=== PATIENT | female | born 1970 | race African-American/Black ===

== ENCOUNTER 2021-09-19 22:07 | Inpatient (IN) | payer SELFPAY ==
[2021-09-19] MEDS ORDERED: Albuterol Sulfate 2.5 mg/3 ml Neb ONE (22:27)
[2021-09-19] MEDS ORDERED: Albuterol Sulfate 2.5 mg/0.5 ml Neb ONE (22:27)
[2021-09-19 22:30] LABS: #Lymphocytes 1.7 thou/uL (1.20-3.40); #Monocytes 0.3 thou/uL (0.11-0.59); #Neutrophils 9.4 thou/uL (1.40-6.50); %Eosinophils 0.1 % (0.0-10.0); %Lymphocytes 15.3 % (21.0-51.0); %Monocytes 2.2 % (0.0-10.0); %Neutrophils 82.4 % (42.0-75.0); Hemoglobin 12.6 g/dL (12.0-16.0); Mean Corpuscular HGB CONC 32.6 g/dL (32.0-36.0); Mean Corpuscular Hemoglobin 31.6 pg (27.0-31.0); Mean Corpuscular Volume 96.8 fL (78.0-98.0); Mean Platelet Volume 7.6 fL (7.4-10.4); Platelet Count 213 thou/uL (130-400); RBC Distribution Width 12.5 % (11.5-14.5); Red Blood Cell (RBC) Count 3.98 mill/uL (4.20-5.40); White Blood Cell (WBC) Count 11.4 thou/uL (4.8-10.8)
[2021-09-19 22:52] LABS: ALT (SGPT) 17 U/L (8-55); AST (SGOT) 29 U/L (5-34); Albumin 3.9 g/dL (3.5-5.0); Alkaline Phosphatase 53 U/L (40-110); Anion Gap 14 mmol/L (10-20); BUN (Urea Nitrogen) 9 mg/dL (7.0-18.7); Bilirubin, Total 0.3 mg/dL (0.2-1.2); Calc. Creatinine Clearance 0 mL/min (70-130); Calcium 7.9 mg/dL (7.8-10.44); Carbon Dioxide 20 mmol/L (22-29); Chloride 98 mmol/L (98-107); Globulin 3.3 g/dL (2.4-3.5); Glucose 265 mg/dL (70-105); Magnesium 2.5 mg/dL (1.6-2.6); Potassium 3.5 mmol/L (3.5-5.1); Protein, Total 7.2 g/dL (6.0-8.3); Sodium 128 mmol/L (136-145)
[2021-09-19 23:06] LABS: Actual Bicarbonate (HCO3a) 15.9 mEq/L (22-28); Analyzer IN Cardio ER; Base Excess (BEa) -12.5 mEq/L (-2.0 to +3.0); CO2 Tension 46.4 mmHg (35.0-45.0); Calcium, Ionized (arterial) 1.09 mmol/L (1.12-1.30); Carboxyhemoglobin (COHb) 0.2 gm% (0.0-3.0); Hemoglobin (Hb) 12.9 g/dL (12.0-16.0); O2 Tension (PaO2), arterial 103.3 mmHg (80.0-100.0); Potassium - ABG Lab 3.19 mmol/L (3.70-5.30)
[2021-09-19 23:13] LABS: CKMB 2.9 ng/mL (0-6.6)
[2021-09-19 23:20] LABS: pH, Arterial 7.15 (7.35-7.45)
[2021-09-19 23:21] LABS: Puncture Site RRA
[2021-09-19] MEDS ORDERED: Propofol 1,000 MG/100 ML VIAL IV ONE (23:43)
[2021-09-19] MEDS ORDERED: Ventilator Sedation Protocol 1 EACH FS SCH (23:45)
[2021-09-19 23:51] LABS: SARS-CoV-2 NAA Rapid Test Not Detected (NotDetected)
[2021-09-19] MEDS ORDERED: Ondansetron ODT 4 MG TAB PO PRN (23:51)
[2021-09-19] MEDS ORDERED: Acetaminophen 650 MG Suppository PR PRN (23:51)
[2021-09-19] MEDS ORDERED: Ondansetron PF 4 MG/2 ML Vial IVP PRN (23:51)
[2021-09-20] MEDS ORDERED: Metoprolol Tartrate 5 MG/5 ML VIAL IVP PRN (01:14)
[2021-09-20] MEDS ORDERED: Electrolyte Replacement Protocol 1 EACH FS SCH (01:15)
[2021-09-20] MEDS ORDERED: Sodium Chloride 0.9% 1,000 ML IV SCH (01:15)
[2021-09-20 01:37] LABS: Hemoglobin 12.3 g/dL (12.0-16.0); Mean Corpuscular HGB CONC 32.8 g/dL (32.0-36.0); Mean Corpuscular Hemoglobin 31.7 pg (27.0-31.0); Mean Corpuscular Volume 96.6 fL (78.0-98.0); Mean Platelet Volume 7.6 fL (7.4-10.4); Platelet Count 179 thou/uL (130-400); RBC Distribution Width 12.5 % (11.5-14.5); Red Blood Cell (RBC) Count 3.87 mill/uL (4.20-5.40); White Blood Cell (WBC) Count 12.1 thou/uL (4.8-10.8)
[2021-09-20] MEDS ORDERED: methylPREDNISolone Sod Succ 40 MG VIAL IVP SCH (01:45)
[2021-09-20] MEDS ORDERED: Fentanyl BOLUS 250 ML IVPB PRN (01:45)
[2021-09-20] MEDS ORDERED: Morphine 4 MG/ML VIAL SLOW IVP PRN (01:45)
[2021-09-20] MEDS ORDERED: Fentanyl CADD 100 ML IV SCH (01:45)
[2021-09-20] MEDS ORDERED: Propofol BOLUS 1,000 MG/100 ML VIAL IV PRN (01:45)
[2021-09-20] MEDS ORDERED: DISCONTINUE PREVIOUS NARCOTIC PAIN MEDICATIONS AND BENZODIAZEPINES FS SCH (01:45)
[2021-09-20 01:50] LABS: Hemoglobin A1c 5.6 % (4.0-6.0)
[2021-09-20 01:53] LABS: Band 17 % (5-11); Lymphocytes 3 % (21-51); MDiff Complete? YES; Monocytes 2 % (0-10); Neutrophil 78 % (42-75)
[2021-09-20 02:20] LABS: Troponin I 0.095 ng/mL (< 0.028)
[2021-09-20 02:39] LABS: Anion Gap 18 mmol/L (10-20); BUN (Urea Nitrogen) 11 mg/dL (7.0-18.7); Calc. Creatinine Clearance 79 mL/min (70-130); Calcium 7.7 mg/dL (7.8-10.44); Carbon Dioxide 15 mmol/L (22-29); Chloride 102 mmol/L (98-107); Glucose 256 mg/dL (70-105); Potassium 3.2 mmol/L (3.5-5.1); Sodium 132 mmol/L (136-145)
[2021-09-20] MEDS: Azithromycin 500 MG in Sodium Chloride 0.9% 250 ML 250 ML IVPB SCH (02:52)
[2021-09-20] MEDS: cefTRIAXone\\ROCEPHIN 1 GM in Sodium Chloride 0.9% 100 ML IVPB SCH (02:53)
[2021-09-20 03:10] LABS: Actual Bicarbonate (HCO3a) 18.2 mEq/L (22-28); Base Excess (BEa) -9.2 mEq/L (-2.0 to +3.0); CO2 Tension 45.2 mmHg (35.0-45.0); Calcium, Ionized (arterial) 1.05 mmol/L (1.12-1.30); Carboxyhemoglobin (COHb) 0.3 gm% (0.0-3.0); Hemoglobin (Hb) 12.5 g/dL (12.0-16.0); O2 Tension (PaO2), arterial 62.2 mmHg (80.0-100.0); Potassium - ABG Lab 3.22 mmol/L (3.70-5.30)
[2021-09-20 03:19] LABS: pH, Arterial 7.22 (7.35-7.45)
[2021-09-20 03:20] LABS: Base Excess (BEa) -8.7 mEq/L (-2.0 to +3.0); CO2 Tension 41.3 mmHg (35.0-45.0); Calcium, Ionized (arterial) 1.04 mmol/L (1.12-1.30); Carboxyhemoglobin (COHb) 0.3 gm% (0.0-3.0); Hemoglobin (Hb) 12.2 g/dL (12.0-16.0); O2 Tension (PaO2), arterial 108.9 mmHg (80.0-100.0); Potassium - ABG Lab 3.17 mmol/L (3.70-5.30); Puncture Site LRA; pH, Arterial 7.26 (7.35-7.45)
[2021-09-20 03:21] LABS: ALV-art Gradient 195.975 mmHg (0-20)
[2021-09-20] MEDS ORDERED: Potassium Chloride 40 MEQ in Sodium Chloride 0.9% 250 ML 250 ML IVPB SCH (05:00)
[2021-09-20] MEDS: Propofol 1,000 MG/100 ML VIAL IV PRN ×3 (05:40→16:54)
[2021-09-20] MEDS: Lorazepam 2 MG/ML VIAL SLOW IVP PRN ×2 (05:41→19:56)
[2021-09-20 06:33] LABS: Actual Bicarbonate (HCO3a) 17.8 mEq/L (22-28); Base Excess (BEa) -7.3 mEq/L (-2.0 to +3.0); CO2 Tension 34.6 mmHg (35.0-45.0); Calcium, Ionized (arterial) 1.06 mmol/L (1.12-1.30); Carboxyhemoglobin (COHb) 0.3 gm% (0.0-3.0); Hemoglobin (Hb) 12.5 g/dL (12.0-16.0); O2 Tension (PaO2), arterial 141.1 mmHg (80.0-100.0); Potassium - ABG Lab 3.68 mmol/L (3.70-5.30); pH, Arterial 7.33 (7.35-7.45)
[2021-09-20 06:34] LABS: Puncture Site RRA
[2021-09-20] MEDS ORDERED: Sodium Bicarb 50 MEQ/50 ML VIAL IVP SCH ×2 (07:00→07:02)
[2021-09-20] MEDS: fentaNYL Citrate-0.9 % NaCl/PF 100 ML IV SCH ×2 (07:13→20:02)
[2021-09-20] MEDS ORDERED: NPH, Human Insulin Isophane 300 UNIT/3 ML VIAL SC SCH ×2 (08:45→21:00)
[2021-09-20] MEDS: Sodium Chloride 0.9% 1,000 ML IV SCH ×2 (08:57→16:54)
[2021-09-20] MEDS: Sodium Bicarbonate Tab 325 MG TAB PER TUBE SCH ×2 (10:16→21:18)
[2021-09-20] MEDS: Enoxaparin Sodium 40 MG/0.4 ML SYRINGE SC SCH (10:16)
[2021-09-20 10:22] LABS: Bilirubin Negative (Negative); Blood, Urine 1+ (Negative); Clarity Clear (Clear); Glucose, Urine (Dipstick) Normal (Negative); Ketone, Urine Negative (Negative); Leukocyte Negative Leu/uL (Negative); Nitrite Negative (Negative); Protein, Urine (Dipstick) 20 mg/dL (Neg-Trace); RBC/HPF 0-3 HPF (0-3); Specific Gravity, Urine 1.018 (1.002-1.036); Squamous Epithelial 0-3 HPF (0-3); Urobilinogen Normal mg/dL (Less than 2); WBC/HPF 0-3 HPF (0-3); pH, Urine 5.5 (5.0-9.0)
[2021-09-20 10:23] LABS: Bacteria/HPF 1+ HPF (None Seen)
[2021-09-20] MEDS ORDERED: HumaLOG 300 UNITS/3 ML VIAL SC PRN (11:21)
[2021-09-20] MEDS ORDERED: Dextrose 5% in Water 1,000 ML IV PRN (11:21)
[2021-09-20] MEDS ORDERED: Dextrose 50% Abboject 50 ML SYRINGE SLOW IVP PRN (11:21)
[2021-09-20] MEDS: Famotidine/PF 20 mg/2ml Vial SLOW IVP SCH (21:18)
[2021-09-20] MEDS: methylPREDNISolone Sod Succ 40 MG VIAL IVP SCH (21:18)
[2021-09-20] MEDS: NPH, Human Insulin Isophane 300 UNIT/3 ML VIAL SC SCH (21:28)
[2021-09-21] MEDS: Sodium Chloride 0.9% 1,000 ML IV SCH ×3 (01:19→16:12)
[2021-09-21] MEDS: Azithromycin 500 MG in Sodium Chloride 0.9% 250 ML 250 ML IVPB SCH (01:20)
[2021-09-21] MEDS: cefTRIAXone\\ROCEPHIN 1 GM in Sodium Chloride 0.9% 100 ML IVPB SCH (02:30)
[2021-09-21] MEDS: Propofol 1,000 MG/100 ML VIAL IV PRN ×3 (02:30→10:45)
[2021-09-21] MEDS: Lorazepam 2 MG/ML VIAL SLOW IVP PRN ×2 (04:09→11:37)
[2021-09-21 08:04] LABS: Actual Bicarbonate (HCO3a) 21.8 mEq/L (22-28); Base Excess (BEa) -1.7 mEq/L (-2.0 to +3.0); CO2 Tension 32.6 mmHg (35.0-45.0); Calcium, Ionized (arterial) 1.13 mmol/L (1.12-1.30); Carboxyhemoglobin (COHb) 0.3 gm% (0.0-3.0); Hemoglobin (Hb) 11.3 g/dL (12.0-16.0); O2 Tension (PaO2), arterial 127.4 mmHg (80.0-100.0); Potassium - ABG Lab 4.16 mmol/L (3.70-5.30); pH, Arterial 7.44 (7.35-7.45)
[2021-09-21 08:06] LABS: Puncture Site RRA
[2021-09-21] MEDS: Famotidine/PF 20 mg/2ml Vial SLOW IVP SCH ×2 (08:23→21:14)
[2021-09-21] MEDS: Sodium Bicarbonate Tab 325 MG TAB PER TUBE SCH ×2 (08:23→21:14)
[2021-09-21] MEDS: Enoxaparin Sodium 40 MG/0.4 ML SYRINGE SC SCH (08:23)
[2021-09-21 08:44] LABS: #Monocytes 0.3 thou/uL (0.11-0.59); #Neutrophils 8.6 thou/uL (1.40-6.50); %Basophils 0.1 % (0.0-1.0); %Eosinophils 0.1 % (0.0-10.0); %Lymphocytes 9.6 % (21.0-51.0); %Monocytes 3.4 % (0.0-10.0); %Neutrophils 86.8 % (42.0-75.0); Hemoglobin 11.1 g/dL (12.0-16.0); Mean Corpuscular HGB CONC 33.1 g/dL (32.0-36.0); Mean Corpuscular Hemoglobin 32.1 pg (27.0-31.0); Mean Platelet Volume 8.6 fL (7.4-10.4); Platelet Count 131 thou/uL (130-400); RBC Distribution Width 12.7 % (11.5-14.5); Red Blood Cell (RBC) Count 3.46 mill/uL (4.20-5.40); White Blood Cell (WBC) Count 9.9 thou/uL (4.8-10.8)
[2021-09-21] MEDS ORDERED: FLU VACC QS2021-22(6MOS UP)/PF 60 MCG/0.5 ML SYRINGE IM ONE (09:00)
[2021-09-21 09:04] LABS: ALT (SGPT) 22 U/L (8-55); AST (SGOT) 34 U/L (5-34); Albumin 3.4 g/dL (3.5-5.0); Alkaline Phosphatase 38 U/L (40-110); Anion Gap 13 mmol/L (10-20); BUN (Urea Nitrogen) 11 mg/dL (7.0-18.7); Bilirubin, Total Less than 0.2 mg/dL (0.2-1.2); Calc. Creatinine Clearance 124 mL/min (70-130); Calcium 8.3 mg/dL (7.8-10.44); Carbon Dioxide 23 mmol/L (22-29); Chloride 109 mmol/L (98-107); Globulin 3.4 g/dL (2.4-3.5); Glucose 114 mg/dL (70-105); Potassium 4.4 mmol/L (3.5-5.1); Protein, Total 6.8 g/dL (6.0-8.3); Sodium 141 mmol/L (136-145)
[2021-09-21 09:08] LABS: Troponin I 0.103 ng/mL (< 0.028)
[2021-09-21] MEDS: fentaNYL Citrate-0.9 % NaCl/PF 100 ML IV SCH (10:45)
[2021-09-21] MEDS: Dexmedetomidine In 0.9 % NaCl 400 MCG in Premix Bag 1 BAG IVPB SCH ×2 (13:40→21:17)
[2021-09-21] MEDS: methylPREDNISolone Sod Succ 40 MG VIAL IVP SCH (21:14)
[2021-09-21] MEDS: NPH, Human Insulin Isophane 300 UNIT/3 ML VIAL SC SCH (21:15)
[2021-09-22] MEDS: Azithromycin 500 MG in Sodium Chloride 0.9% 250 ML 250 ML IVPB SCH (01:17)
[2021-09-22] MEDS: Sodium Chloride 0.9% 1,000 ML IV SCH (01:17)
[2021-09-22] MEDS: Propofol 1,000 MG/100 ML VIAL IV PRN (01:18)
[2021-09-22] MEDS: cefTRIAXone\\ROCEPHIN 1 GM in Sodium Chloride 0.9% 100 ML IVPB SCH (03:32)
[2021-09-22 04:20] LABS: #Lymphocytes 0.6 thou/uL (1.20-3.40); #Monocytes 0.2 thou/uL (0.11-0.59); #Neutrophils 6.8 thou/uL (1.40-6.50); %Basophils 0.1 % (0.0-1.0); %Lymphocytes 8.1 % (21.0-51.0); %Neutrophils 88.8 % (42.0-75.0); Hemoglobin 11.2 g/dL (12.0-16.0); Mean Corpuscular HGB CONC 34.1 g/dL (32.0-36.0); Mean Corpuscular Hemoglobin 33.7 pg (27.0-31.0); Mean Corpuscular Volume 98.7 fL (78.0-98.0); Mean Platelet Volume 8.5 fL (7.4-10.4); Platelet Count 126 thou/uL (130-400); RBC Distribution Width 12.8 % (11.5-14.5); Red Blood Cell (RBC) Count 3.34 mill/uL (4.20-5.40); White Blood Cell (WBC) Count 7.6 thou/uL (4.8-10.8)
[2021-09-22 04:38] LABS: Anion Gap 13 mmol/L (10-20); BUN (Urea Nitrogen) 15 mg/dL (7.0-18.7); Calc. Creatinine Clearance 132 mL/min (70-130); Carbon Dioxide 20 mmol/L (22-29); Chloride 113 mmol/L (98-107); Glucose 206 mg/dL (70-105); Potassium 4.5 mmol/L (3.5-5.1); Sodium 141 mmol/L (136-145)
[2021-09-22] MEDS: fentaNYL Citrate-0.9 % NaCl/PF 100 ML IV SCH (04:57)
[2021-09-22] MEDS: Dexmedetomidine In 0.9 % NaCl 400 MCG in Premix Bag 1 BAG IVPB SCH ×3 (05:43→21:49)
[2021-09-22] MEDS: hydrALAZINE 20 MG/ML VIAL SLOW IVP PRN ×2 (06:10→15:05)
[2021-09-22] MEDS: HumaLOG 300 UNITS/3 ML VIAL SC PRN (06:36)
[2021-09-22 08:02] LABS: Actual Bicarbonate (HCO3a) 21.5 mEq/L (22-28); Base Excess (BEa) -4.4 mEq/L (-2.0 to +3.0); CO2 Tension 42.4 mmHg (35.0-45.0); Calcium, Ionized (arterial) 1.19 mmol/L (1.12-1.30); Carboxyhemoglobin (COHb) 0.3 gm% (0.0-3.0); Hemoglobin (Hb) 11.8 g/dL (12.0-16.0); O2 Tension (PaO2), arterial 126.5 mmHg (80.0-100.0); Potassium - ABG Lab 4.24 mmol/L (3.70-5.30); pH, Arterial 7.32 (7.35-7.45)
[2021-09-22 08:03] LABS: Puncture Site RRA
[2021-09-22] MEDS: Sodium Bicarbonate Tab 325 MG TAB PER TUBE SCH ×2 (08:38→20:12)
[2021-09-22] MEDS: Enoxaparin Sodium 40 MG/0.4 ML SYRINGE SC SCH (08:38)
[2021-09-22] MEDS: Famotidine 20 MG TAB PER TUBE SCH ×2 (08:52→20:12)
[2021-09-22] MEDS: Lorazepam 2 MG/ML VIAL SLOW IVP PRN ×5 (12:10→22:59)
[2021-09-22] MEDS ORDERED: niCARdipine 40MG In NaCl 40 MG/200 ML BAG IVPB SCH (16:00)
[2021-09-22] MEDS ORDERED: niCARdipine 25 MG in Sodium Chloride 0.9% 250 ML 250 ML IVPB SCH (16:15)
[2021-09-22] MEDS: methylPREDNISolone Sod Succ 40 MG VIAL IVP SCH (20:12)
[2021-09-22] MEDS: NPH, Human Insulin Isophane 300 UNIT/3 ML VIAL SC SCH (20:25)
[2021-09-22] MEDS: Acetaminophen 325 MG TAB PO PRN (23:44)
[2021-09-23] MEDS: Lorazepam 2 MG/ML VIAL SLOW IVP PRN ×5 (00:40→16:02)
[2021-09-23] MEDS: HumaLOG 300 UNITS/3 ML VIAL SC PRN ×2 (01:02→03:29)
[2021-09-23] MEDS ORDERED: Propofol 1,000 MG/100 ML VIAL IV ONE (01:10)
[2021-09-23] MEDS ORDERED: Propofol BOLUS 1,000 MG/100 ML VIAL IV PRN (01:30)
[2021-09-23] MEDS: Azithromycin 500 MG in Sodium Chloride 0.9% 250 ML 250 ML IVPB SCH (02:23)
[2021-09-23] MEDS: cefTRIAXone\\ROCEPHIN 1 GM in Sodium Chloride 0.9% 100 ML IVPB SCH (02:51)
[2021-09-23] MEDS ORDERED: Furosemide 40 MG/4 ML VIAL SLOW IVP SCH (04:00)
[2021-09-23 04:03] LABS: Band 16 % (5-11); Hemoglobin 10.8 g/dL (12.0-16.0); Lymphocytes 9 % (21-51); MDiff Complete? YES; Mean Corpuscular HGB CONC 31.1 g/dL (32.0-36.0); Mean Corpuscular Hemoglobin 30.4 pg (27.0-31.0); Mean Corpuscular Volume 97.7 fL (78.0-98.0); Mean Platelet Volume 8.4 fL (7.4-10.4); Monocytes 4 % (0-10); Neutrophil 71 % (42-75); Platelet Count 147 thou/uL (130-400); Platelet Morphology Comment Appears Adequate; RBC Distribution Width 12.9 % (11.5-14.5); RBC Morphology Normal; Red Blood Cell (RBC) Count 3.55 mill/uL (4.20-5.40)
[2021-09-23 04:07] LABS: Anion Gap 12 mmol/L (10-20); BUN (Urea Nitrogen) 14 mg/dL (7.0-18.7); Calc. Creatinine Clearance 150 mL/min (70-130); Calcium 8.1 mg/dL (7.8-10.44); Carbon Dioxide 20 mmol/L (22-29); Chloride 110 mmol/L (98-107); Glucose 168 mg/dL (70-105); Potassium 3.9 mmol/L (3.5-5.1); Sodium 138 mmol/L (136-145)
[2021-09-23] MEDS: fentaNYL Citrate-0.9 % NaCl/PF 100 ML IV SCH ×2 (05:45→18:08)
[2021-09-23] MEDS: Propofol 1,000 MG/100 ML VIAL IV PRN ×3 (05:46→23:39)
[2021-09-23 07:09] LABS: Actual Bicarbonate (HCO3a) 24.1 mEq/L (22-28); Base Excess (BEa) 0.3 mEq/L (-2.0 to +3.0); CO2 Tension 35.9 mmHg (35.0-45.0); Calcium, Ionized (arterial) 1.13 mmol/L (1.12-1.30); Carboxyhemoglobin (COHb) 0.1 gm% (0.0-3.0); Hemoglobin (Hb) 12.4 g/dL (12.0-16.0); O2 Tension (PaO2), arterial 80.8 mmHg (80.0-100.0); Potassium - ABG Lab 3.93 mmol/L (3.70-5.30); pH, Arterial 7.44 (7.35-7.45)
[2021-09-23 07:44] LABS: ALV-art Gradient 159.525 mmHg (0-20); Puncture Site RRA
[2021-09-23] MEDS ORDERED: Electrolyte Replacement Protocol 1 EACH FS SCH (09:30)
[2021-09-23] MEDS: Sodium Bicarbonate Tab 325 MG TAB PER TUBE SCH ×2 (09:41→21:55)
[2021-09-23] MEDS: Famotidine 20 MG TAB PER TUBE SCH ×2 (09:42→21:55)
[2021-09-23] MEDS: Furosemide 40 MG TAB PO SCH ×2 (09:42→13:14)
[2021-09-23] MEDS: Enoxaparin Sodium 40 MG/0.4 ML SYRINGE SC SCH (09:42)
[2021-09-23] MEDS: Polyethylene Glycol 3350 17 GM Packet PER TUBE SCH (09:52)
[2021-09-23] MEDS: Senokot S 8.6-50 MG TAB PO SCH ×2 (09:52→21:55)
[2021-09-23] MEDS: Carvedilol 3.125 MG TAB PO SCH (16:02)
[2021-09-23] MEDS: methylPREDNISolone Sod Succ 40 MG VIAL IVP SCH (21:55)
[2021-09-23] MEDS: NPH, Human Insulin Isophane 300 UNIT/3 ML VIAL SC SCH (22:04)
[2021-09-24] MEDS: Lorazepam 2 MG/ML VIAL SLOW IVP PRN (02:08)
[2021-09-24] MEDS: cefTRIAXone\\ROCEPHIN 1 GM in Sodium Chloride 0.9% 100 ML IVPB SCH (02:14)
[2021-09-24] MEDS: Azithromycin 500 MG in Sodium Chloride 0.9% 250 ML 250 ML IVPB SCH (02:52)
[2021-09-24 04:19] LABS: Anion Gap 13 mmol/L (10-20); BUN (Urea Nitrogen) 15 mg/dL (7.0-18.7); Band 4 % (5-11); Calc. Creatinine Clearance 140 mL/min (70-130); Calcium 8.4 mg/dL (7.8-10.44); Carbon Dioxide 29 mmol/L (22-29); Chloride 101 mmol/L (98-107); Glucose 147 mg/dL (70-105); Hemoglobin 10.7 g/dL (12.0-16.0); Hypochromia SLIGHT = 6-15 cells (100X) (0-5/hpf); Lymphocytes 25 % (21-51); MDiff Complete? YES; Mean Corpuscular HGB CONC 31.9 g/dL (32.0-36.0); Mean Corpuscular Hemoglobin 30.8 pg (27.0-31.0); Mean Corpuscular Volume 96.6 fL (78.0-98.0); Mean Platelet Volume 8.5 fL (7.4-10.4); Neutrophil 71 % (42-75); Platelet Count 158 thou/uL (130-400); Platelet Morphology Comment Appears Adequate; Potassium 3.5 mmol/L (3.5-5.1); RBC Distribution Width 12.8 % (11.5-14.5); Red Blood Cell (RBC) Count 3.46 mill/uL (4.20-5.40); Sodium 139 mmol/L (136-145); White Blood Cell (WBC) Count 6.1 thou/uL (4.8-10.8)
[2021-09-24] MEDS: Propofol 1,000 MG/100 ML VIAL IV PRN ×2 (04:58→20:49)
[2021-09-24] MEDS: fentaNYL Citrate-0.9 % NaCl/PF 100 ML IV SCH ×2 (06:16→23:44)
[2021-09-24] MEDS ORDERED: Potassium Bicarbonate/Cit Ac 20 MEQ TAB PER TUBE SCH (07:00)
[2021-09-24] MEDS: Polyethylene Glycol 3350 17 GM Packet PER TUBE SCH (08:59)
[2021-09-24] MEDS: Furosemide 40 MG TAB PO SCH ×2 (08:59→14:54)
[2021-09-24] MEDS: Famotidine 20 MG TAB PER TUBE SCH ×2 (08:59→20:48)
[2021-09-24] MEDS: Sodium Bicarbonate Tab 325 MG TAB PER TUBE SCH ×2 (08:59→20:48)
[2021-09-24] MEDS: Enoxaparin Sodium 40 MG/0.4 ML SYRINGE SC SCH (08:59)
[2021-09-24] MEDS: Carvedilol 3.125 MG TAB PO SCH ×2 (09:00→17:05)
[2021-09-24] MEDS: Senokot S 8.6-50 MG TAB PO SCH ×2 (09:15→20:46)
[2021-09-24] MEDS: Labetalol HCl 100 MG/20 ML VIAL SLOW IVP PRN ×2 (11:41→21:59)
[2021-09-24] MEDS ORDERED: Dexmedetomidine In 0.9 % NaCl 100 ML IVPB SCH (11:45)
[2021-09-24] MEDS: methylPREDNISolone Sod Succ 40 MG VIAL IVP SCH (20:49)
[2021-09-24] MEDS: NPH, Human Insulin Isophane 300 UNIT/3 ML VIAL SC SCH (22:00)
[2021-09-24] MEDS: HumaLOG 300 UNITS/3 ML VIAL SC PRN (22:06)
[2021-09-24] MEDS: hydrALAZINE 20 MG/ML VIAL SLOW IVP PRN (23:11)
[2021-09-25] MEDS: cefTRIAXone\\ROCEPHIN 2 GM in Sodium Chloride 0.9% 100 ML IVPB SCH (00:47)
[2021-09-25] MEDS: Azithromycin 500 MG in Sodium Chloride 0.9% 250 ML 250 ML IVPB SCH (02:47)
[2021-09-25] MEDS: Propofol 1,000 MG/100 ML VIAL IV PRN ×4 (03:50→20:43)
[2021-09-25] MEDS: HumaLOG 300 UNITS/3 ML VIAL SC PRN (04:07)
[2021-09-25 07:23] LABS: #Monocytes 0.8 thou/uL (0.11-0.59); #Neutrophils 8.5 thou/uL (1.40-6.50); %Eosinophils 0.1 % (0.0-10.0); %Lymphocytes 17.5 % (21.0-51.0); %Monocytes 7.3 % (0.0-10.0); %Neutrophils 75.1 % (42.0-75.0); Mean Corpuscular HGB CONC 31.5 g/dL (32.0-36.0); Mean Corpuscular Hemoglobin 30.5 pg (27.0-31.0); Mean Corpuscular Volume 96.8 fL (78.0-98.0); Mean Platelet Volume 8.2 fL (7.4-10.4); Platelet Count 190 thou/uL (130-400); RBC Distribution Width 12.8 % (11.5-14.5); Red Blood Cell (RBC) Count 3.95 mill/uL (4.20-5.40); White Blood Cell (WBC) Count 11.3 thou/uL (4.8-10.8)
[2021-09-25 07:43] LABS: Anion Gap 15 mmol/L (10-20); BUN (Urea Nitrogen) 16 mg/dL (7.0-18.7); Calc. Creatinine Clearance 138 mL/min (70-130); Calcium 8.8 mg/dL (7.8-10.44); Carbon Dioxide 30 mmol/L (22-29); Chloride 101 mmol/L (98-107); Glucose 89 mg/dL (70-105); Magnesium 1.9 mg/dL (1.6-2.6); Potassium 3.9 mmol/L (3.5-5.1); Sodium 142 mmol/L (136-145)
[2021-09-25] MEDS: Spironolactone 25 MG TAB PO SCH (07:58)
[2021-09-25] MEDS: Carvedilol 3.125 MG TAB PO SCH ×2 (07:59→17:09)
[2021-09-25] MEDS: Polyethylene Glycol 3350 17 GM Packet PER TUBE SCH (07:59)
[2021-09-25] MEDS: Famotidine 20 MG TAB PER TUBE SCH ×2 (07:59→20:45)
[2021-09-25] MEDS: Enoxaparin Sodium 40 MG/0.4 ML SYRINGE SC SCH (07:59)
[2021-09-25] MEDS: Senokot S 8.6-50 MG TAB PO SCH ×2 (07:59→20:46)
[2021-09-25] MEDS: Furosemide 40 MG TAB PO SCH ×2 (07:59→13:11)
[2021-09-25] MEDS: Sodium Bicarbonate Tab 325 MG TAB PER TUBE SCH ×2 (07:59→20:45)
[2021-09-25] MEDS ORDERED: Magnesium 2 GM/50 ML(in water) 2 GM in Premix Bag 1 BAG IVPB SCH (10:00)
[2021-09-25] MEDS: Lorazepam 2 MG/ML VIAL SLOW IVP PRN ×2 (13:11→17:09)
[2021-09-25] MEDS ORDERED: cloNIDine 0.2mg/24 Hour PATCH TD SCH (17:00)
[2021-09-25] MEDS: fentaNYL Citrate-0.9 % NaCl/PF 100 ML IV SCH (17:08)
[2021-09-25] MEDS: methylPREDNISolone Sod Succ 40 MG VIAL IVP SCH (20:43)
[2021-09-25] MEDS: Lisinopril 10 MG TAB PO SCH (20:45)
[2021-09-25] MEDS: Acetaminophen 325 MG TAB PO PRN (20:46)
[2021-09-25] MEDS: NPH, Human Insulin Isophane 300 UNIT/3 ML VIAL SC SCH (21:58)
[2021-09-25] MEDS ORDERED: niCARdipine 50 MG in Sodium Chloride 0.9% 250 ML 250 ML IVPB SCH (22:30)
[2021-09-26] MEDS: cefTRIAXone\\ROCEPHIN 2 GM in Sodium Chloride 0.9% 100 ML IVPB SCH (00:30)
[2021-09-26] MEDS: Azithromycin 500 MG in Sodium Chloride 0.9% 250 ML 250 ML IVPB SCH (02:49)
[2021-09-26] MEDS: HumaLOG 300 UNITS/3 ML VIAL SC PRN (04:21)
[2021-09-26 04:40] LABS: Band 4 % (5-11); Hemoglobin 11.9 g/dL (12.0-16.0); Lymphocytes 10 % (21-51); MDiff Complete? YES; Mean Corpuscular HGB CONC 32.6 g/dL (32.0-36.0); Mean Corpuscular Hemoglobin 31.5 pg (27.0-31.0); Mean Corpuscular Volume 96.7 fL (78.0-98.0); Mean Platelet Volume 8.8 fL (7.4-10.4); Monocytes 8 % (0-10); Neutrophil 78 % (42-75); Platelet Count 217 thou/uL (130-400); Platelet Morphology Comment Appears Adequate; RBC Distribution Width 12.6 % (11.5-14.5); RBC Morphology Normal; Red Blood Cell (RBC) Count 3.79 mill/uL (4.20-5.40); White Blood Cell (WBC) Count 8.7 thou/uL (4.8-10.8)
[2021-09-26 04:47] LABS: Anion Gap 12 mmol/L (10-20); BUN (Urea Nitrogen) 18 mg/dL (7.0-18.7); Calc. Creatinine Clearance 122 mL/min (70-130); Calcium 8.7 mg/dL (7.8-10.44); Carbon Dioxide 32 mmol/L (22-29); Chloride 96 mmol/L (98-107); Glucose 211 mg/dL (70-105); Magnesium 2.2 mg/dL (1.6-2.6); Potassium 3.4 mmol/L (3.5-5.1); Sodium 137 mmol/L (136-145)
[2021-09-26] MEDS ORDERED: Potassium Bicarbonate/Cit Ac 20 MEQ TAB PER TUBE SCH (07:00)
[2021-09-26] MEDS: Furosemide 40 MG TAB PO SCH (08:48)
[2021-09-26] MEDS: Enoxaparin Sodium 40 MG/0.4 ML SYRINGE SC SCH (08:49)
[2021-09-26] MEDS: Carvedilol 3.125 MG TAB PO SCH (08:49)
[2021-09-26] MEDS: methylPREDNISolone Sod Succ 40 MG VIAL IVP SCH ×2 (08:49→20:15)
[2021-09-26] MEDS: Lisinopril 10 MG TAB PO SCH ×2 (08:49→20:16)
[2021-09-26] MEDS: Spironolactone 25 MG TAB PO SCH (08:49)
[2021-09-26] MEDS: Famotidine 20 MG TAB PER TUBE SCH ×2 (08:49→20:16)
[2021-09-26] MEDS: Sodium Bicarbonate Tab 325 MG TAB PER TUBE SCH ×2 (08:49→20:17)
[2021-09-26 08:50] LABS: Actual Bicarbonate (HCO3a) 30.9 mEq/L (22-28); Base Excess (BEa) 6.8 mEq/L (-2.0 to +3.0); Calcium, Ionized (arterial) 1.13 mmol/L (1.12-1.30); Carboxyhemoglobin (COHb) 0.4 gm% (0.0-3.0); Hemoglobin (Hb) 13.7 g/dL (12.0-16.0); O2 Tension (PaO2), arterial 69.7 mmHg (80.0-100.0); Potassium - ABG Lab 4.21 mmol/L (3.70-5.30); Puncture Site LBA; pH, Arterial 7.49 (7.35-7.45)
[2021-09-26] MEDS: Senokot S 8.6-50 MG TAB PO SCH ×2 (09:16→20:18)
[2021-09-26] MEDS: Polyethylene Glycol 3350 17 GM Packet PER TUBE SCH (09:16)
[2021-09-26 12:43] LABS: SARS-CoV-2 PCR by NAA Not Detected (NotDetected)
[2021-09-26 12:52] LABS: Potassium 3.6 mmol/L (3.5-5.1)
[2021-09-26] MEDS ORDERED: Carvedilol 6.25 MG TAB PO SCH (16:00)
[2021-09-26] MEDS: niCARdipine 50 MG in Sodium Chloride 0.9% 250 ML 230 ML IVPB SCH (19:13)
[2021-09-26] MEDS: Carvedilol 6.25 MG TAB PO SCH (20:15)
[2021-09-26] MEDS: NPH, Human Insulin Isophane 300 UNIT/3 ML VIAL SC SCH (21:45)
[2021-09-27] MEDS: Labetalol HCl 100 MG/20 ML VIAL SLOW IVP PRN ×5 (00:50→22:22)
[2021-09-27 04:55] LABS: Anion Gap 15 mmol/L (10-20); BUN (Urea Nitrogen) 19 mg/dL (7.0-18.7); Calc. Creatinine Clearance 134 mL/min (70-130); Calcium 9.5 mg/dL (7.8-10.44); Carbon Dioxide 30 mmol/L (22-29); Chloride 100 mmol/L (98-107); Glucose 132 mg/dL (70-105); Potassium 3.5 mmol/L (3.5-5.1); Sodium 141 mmol/L (136-145)
[2021-09-27 05:07] LABS: Band 5 % (5-11); Eosinophils 1 % (0-10); Hemoglobin 12.3 g/dL (12.0-16.0); Lymphocytes 10 % (21-51); MDiff Complete? YES; Mean Corpuscular HGB CONC 32.4 g/dL (32.0-36.0); Mean Corpuscular Hemoglobin 31.4 pg (27.0-31.0); Mean Corpuscular Volume 97.2 fL (78.0-98.0); Mean Platelet Volume 8.5 fL (7.4-10.4); Monocytes 3 % (0-10); Myelocyte 1 % (0-0); Neutrophil 79 % (42-75); Platelet Count 237 thou/uL (130-400); Platelet Morphology Comment Appears Adequate; RBC Distribution Width 12.4 % (11.5-14.5); RBC Morphology Normal; White Blood Cell (WBC) Count 10.8 thou/uL (4.8-10.8)
[2021-09-27] MEDS: Furosemide 40 MG TAB PO SCH (07:56)
[2021-09-27] MEDS: Enoxaparin Sodium 40 MG/0.4 ML SYRINGE SC SCH (07:56)
[2021-09-27] MEDS: Spironolactone 25 MG TAB PO SCH (07:56)
[2021-09-27] MEDS: Famotidine 20 MG TAB PER TUBE SCH ×2 (07:56→20:25)
[2021-09-27] MEDS: Carvedilol 6.25 MG TAB PO SCH ×2 (07:56→13:42)
[2021-09-27] MEDS: methylPREDNISolone Sod Succ 40 MG VIAL IVP SCH (07:57)
[2021-09-27] MEDS: Polyethylene Glycol 3350 17 GM Packet PER TUBE SCH (07:57)
[2021-09-27] MEDS: Sodium Bicarbonate Tab 325 MG TAB PER TUBE SCH ×2 (07:58→20:25)
[2021-09-27] MEDS: Senokot S 8.6-50 MG TAB PO SCH ×2 (07:58→20:25)
[2021-09-27] MEDS: Lisinopril 10 MG TAB PO SCH (07:58)
[2021-09-27] MEDS ORDERED: Communication Order-Pharmacy FS SCH (17:15)
[2021-09-27] MEDS ORDERED: Carvedilol 6.25 MG TAB PO SCH (17:15)
[2021-09-27] MEDS: niCARdipine 50 MG in Sodium Chloride 0.9% 250 ML 230 ML IVPB SCH (19:22)
[2021-09-27] MEDS: Lisinopril 20 MG TAB PO SCH (20:25)
[2021-09-27] MEDS: NPH, Human Insulin Isophane 300 UNIT/3 ML VIAL SC SCH (21:09)
[2021-09-28] MEDS: hydrALAZINE 20 MG/ML VIAL SLOW IVP PRN (00:28)
[2021-09-28] MEDS: Labetalol HCl 100 MG/20 ML VIAL SLOW IVP PRN ×3 (02:02→14:33)
[2021-09-28 04:09] LABS: Band 2 % (5-11); Hemoglobin 13.2 g/dL (12.0-16.0); Lymphocytes 35 % (21-51); MDiff Complete? YES; Mean Corpuscular HGB CONC 31.6 g/dL (32.0-36.0); Mean Corpuscular Hemoglobin 30.4 pg (27.0-31.0); Mean Corpuscular Volume 96.4 fL (78.0-98.0); Mean Platelet Volume 8.5 fL (7.4-10.4); Monocytes 3 % (0-10); Neutrophil 60 % (42-75); Platelet Count 278 thou/uL (130-400); Platelet Morphology Comment Appears Adequate; RBC Distribution Width 12.6 % (11.5-14.5); RBC Morphology Normal; Red Blood Cell (RBC) Count 4.34 mill/uL (4.20-5.40); White Blood Cell (WBC) Count 9.7 thou/uL (4.8-10.8)
[2021-09-28 04:10] LABS: Anion Gap 18 mmol/L (10-20); BUN (Urea Nitrogen) 18 mg/dL (7.0-18.7); Calc. Creatinine Clearance 124 mL/min (70-130); Calcium 9.2 mg/dL (7.8-10.44); Carbon Dioxide 28 mmol/L (22-29); Cardiac Risk 8.4 (Less than 4.5); Chloride 102 mmol/L (98-107); Cholesterol 251 mg/dl (< 200 Desired); Glucose 127 mg/dL (70-105); HDL Cholesterol 30 mg/dL (>60 Neg Risk); LDL Cholesterol, Calculated 183 mg/dL; Magnesium 1.9 mg/dL (1.6-2.6); Potassium 3.1 mmol/L (3.5-5.1); Sodium 145 mmol/L (136-145); Triglycerides 188 mg/dL (Less than 150)
[2021-09-28] MEDS ORDERED: Sodium Chloride 0.9% 1,000 ML IV SCH ×2 (06:00→08:11)
[2021-09-28] MEDS ORDERED: Lidocaine 1% (PF) 30 ML VIAL ONE (06:21)
[2021-09-28] MEDS ORDERED: Heparin 10,000 UNITS/ 10 ML VIAL ONE (06:25)
[2021-09-28] MEDS ORDERED: Fentanyl 100 MCG/2 ML VIAL ONE (06:56)
[2021-09-28] MEDS ORDERED: Midazolam HCl 2 mg/2 ml Vial ONE (06:56)
[2021-09-28] MEDS ORDERED: Potassium Chloride 40 MEQ in Sodium Chloride 0.9% 250 ML 250 ML IVPB SCH (07:00)
[2021-09-28] MEDS ORDERED: Magnesium Sulfate 2 GM in Sodium Chloride 0.9% 100 ML IVPB SCH (07:00)
[2021-09-28] MEDS ORDERED: diphenhydrAMINE 50 MG/ML VIAL ONE (07:39)
[2021-09-28] MEDS ORDERED: Hydrocortisone Sod Succ/PF 100 mg/2 ml Vial ONE (07:39)
[2021-09-28] MEDS ORDERED: Protamine Sulfate 50 MG/5 ML VIAL ONE (07:46)
[2021-09-28] MEDS ORDERED: hydrALAZINE 20 MG/ML VIAL ONE (07:49)
[2021-09-28] MEDS ORDERED: Carvedilol 6.25 MG TAB PO SCH (08:00)
[2021-09-28] MEDS ORDERED: Sodium Chloride 0.9% 200 ML IV PRN (08:09)
[2021-09-28] MEDS ORDERED: Acetaminophen/Codeine 30-300mg Tablet PO PRN ×2 (08:09)
[2021-09-28] MEDS ORDERED: Nitroglycerin 0.4 MG TAB (25 Tab Bottle) SL PRN (08:09)
[2021-09-28] MEDS ORDERED: Iopamidol 370 76% 50 ML VIAL FS ONE (08:43)
[2021-09-28] MEDS ORDERED: Iopamidol 370 76% 100 ML VIAL ONE (08:43)
[2021-09-28] MEDS: Furosemide 40 MG TAB PO SCH (08:51)
[2021-09-28] MEDS: Famotidine 20 MG TAB PER TUBE SCH ×2 (08:52→20:46)
[2021-09-28] MEDS: Senokot S 8.6-50 MG TAB PO SCH ×2 (08:52→20:46)
[2021-09-28] MEDS: Carvedilol 25 MG TAB PO SCH ×2 (08:52→17:08)
[2021-09-28] MEDS: Sodium Bicarbonate Tab 325 MG TAB PER TUBE SCH ×2 (08:52→20:45)
[2021-09-28] MEDS: Lisinopril 20 MG TAB PO SCH ×2 (08:52→20:45)
[2021-09-28] MEDS: Spironolactone 25 MG TAB PO SCH (08:55)
[2021-09-28] MEDS: Polyethylene Glycol 3350 17 GM Packet PER TUBE SCH (08:55)
[2021-09-28 11:56] VITALS: BMI 32.9
[2021-09-28] MEDS ORDERED: hydrALAZINE 25 MG TAB PO SCH (12:15)
[2021-09-28] MEDS: hydrALAZINE 25 MG TAB PO SCH ×3 (12:16→20:45)
[2021-09-28] MEDS: Atorvastatin Calcium 40 MG TAB PO SCH (20:45)
[2021-09-29] MEDS: hydrALAZINE 20 MG/ML VIAL SLOW IVP PRN ×2 (00:21→01:47)
[2021-09-29 03:48] LABS: #Lymphocytes 2.1 thou/uL (1.20-3.40); #Monocytes 0.6 thou/uL (0.11-0.59); %Basophils 0.2 % (0.0-1.0); %Eosinophils 0.3 % (0.0-10.0); %Lymphocytes 27.2 % (21.0-51.0); %Monocytes 8.1 % (0.0-10.0); %Neutrophils 64.3 % (42.0-75.0); Hemoglobin 11.4 g/dL (12.0-16.0); Mean Corpuscular HGB CONC 31.9 g/dL (32.0-36.0); Mean Corpuscular Hemoglobin 30.9 pg (27.0-31.0); Mean Corpuscular Volume 96.9 fL (78.0-98.0); Mean Platelet Volume 8.3 fL (7.4-10.4); Platelet Count 225 thou/uL (130-400); RBC Distribution Width 12.7 % (11.5-14.5); Red Blood Cell (RBC) Count 3.69 mill/uL (4.20-5.40); White Blood Cell (WBC) Count 7.7 thou/uL (4.8-10.8)
[2021-09-29 04:08] LABS: Anion Gap 9 mmol/L (10-20); BUN (Urea Nitrogen) 15 mg/dL (7.0-18.7); Calc. Creatinine Clearance 126 mL/min (70-130); Calcium 8.2 mg/dL (7.8-10.44); Carbon Dioxide 24 mmol/L (22-29); Chloride 109 mmol/L (98-107); Glucose 116 mg/dL (70-105); Potassium 3.3 mmol/L (3.5-5.1); Sodium 139 mmol/L (136-145)
[2021-09-29] MEDS: Furosemide 40 MG TAB PO SCH (06:31)
[2021-09-29] MEDS ORDERED: Potassium Chloride 40 MEQ in Sodium Chloride 0.9% 250 ML 250 ML IVPB SCH (06:45)
[2021-09-29] MEDS: Carvedilol 25 MG TAB PO SCH ×2 (08:14→17:10)
[2021-09-29] MEDS: Spironolactone 25 MG TAB PO SCH (08:15)
[2021-09-29] MEDS: Polyethylene Glycol 3350 17 GM Packet PER TUBE SCH (09:48)
[2021-09-29] MEDS: hydrALAZINE 25 MG TAB PO SCH ×3 (09:49→20:44)
[2021-09-29] MEDS: Sodium Bicarbonate Tab 325 MG TAB PER TUBE SCH ×2 (09:49→20:45)
[2021-09-29] MEDS: Lisinopril 20 MG TAB PO SCH ×2 (09:50→21:08)
[2021-09-29] MEDS: Famotidine 20 MG TAB PER TUBE SCH ×2 (09:50→20:45)
[2021-09-29] MEDS: Senokot S 8.6-50 MG TAB PO SCH ×2 (09:50→21:09)
[2021-09-29] MEDS: Isosorbide Dinitrate 20 MG TAB PO SCH ×2 (14:31→21:08)
[2021-09-29] MEDS: Atorvastatin Calcium 40 MG TAB PO SCH (20:45)
[2021-09-30 05:14] LABS: #Eosinphils 0.1 thou/uL (0.0-0.7); #Lymphocytes 2.5 thou/uL (1.20-3.40); #Monocytes 0.6 thou/uL (0.11-0.59); #Neutrophils 5.3 thou/uL (1.40-6.50); %Basophils 0.3 % (0.0-1.0); %Eosinophils 0.7 % (0.0-10.0); %Lymphocytes 29.9 % (21.0-51.0); %Monocytes 6.8 % (0.0-10.0); %Neutrophils 62.3 % (42.0-75.0); Mean Corpuscular HGB CONC 32.3 g/dL (32.0-36.0); Mean Corpuscular Hemoglobin 31.2 pg (27.0-31.0); Mean Corpuscular Volume 96.7 fL (78.0-98.0); Platelet Count 263 thou/uL (130-400); RBC Distribution Width 12.8 % (11.5-14.5); Red Blood Cell (RBC) Count 3.83 mill/uL (4.20-5.40); White Blood Cell (WBC) Count 8.4 thou/uL (4.8-10.8)
[2021-09-30 05:38] LABS: Anion Gap 16 mmol/L (10-20); BUN (Urea Nitrogen) 13 mg/dL (7.0-18.7); Calc. Creatinine Clearance 117 mL/min (70-130); Calcium 9.1 mg/dL (7.8-10.44); Carbon Dioxide 22 mmol/L (22-29); Chloride 105 mmol/L (98-107); Glucose 114 mg/dL (70-105); Magnesium 1.8 mg/dL (1.6-2.6); Potassium 3.6 mmol/L (3.5-5.1); Sodium 139 mmol/L (136-145)
[2021-09-30] MEDS ORDERED: Spironolactone 100 MG TAB PO SCH (08:00)
[2021-09-30] MEDS ORDERED: Carvedilol 25 MG TAB PO SCH (08:00)
[2021-09-30] MEDS ORDERED: Potassium Chloride 10 MEQ TAB PO SCH (08:00)
[2021-09-30 09:03] VITALS: BP 179/99; TEMP 97.6
[2021-09-30] MEDS: hydrALAZINE 25 MG TAB PO SCH (09:25)
[2021-09-30] MEDS: Sodium Bicarbonate Tab 325 MG TAB PER TUBE SCH (09:26)
[2021-09-30] MEDS: Isosorbide Dinitrate 20 MG TAB PO SCH (09:28)
[2021-09-30] MEDS: Furosemide 40 MG TAB PO SCH (09:28)
[2021-09-30] MEDS: Senokot S 8.6-50 MG TAB PO SCH (09:28)
[2021-09-30] MEDS: Lisinopril 20 MG TAB PO SCH (09:28)
[2021-09-30] MEDS: Polyethylene Glycol 3350 17 GM Packet PER TUBE SCH (09:28)
[2021-09-30] MEDS: Carvedilol 25 MG TAB PO SCH (09:30)
[2021-09-30] MEDS: Famotidine 20 MG TAB PER TUBE SCH (10:45)
== END 2021-09-30 09:50 | disposition left against medical advice (07) | DRG 870 ==
LOC: ERS 22:07 → CCU 22:13 → 2NO 09-30 04:43
PROVIDERS: ADMIT Student in an Organized Health Care Education/Training Program; ATTEND Family Medicine
PROC: 5A1955Z Respiratory Ventilation, Greater than 96 Consecutive Hours (ICD-10-PCS; principal; 2021-09-19)
PROC: 0DH67UZ Insertion of Feeding Device into Stomach, Via Natural or Artificial Opening (ICD-10-PCS; 2021-09-19)
PROC: 3E03329 Introduction of Other Anti-infective into Peripheral Vein, Percutaneous Approach (ICD-10-PCS; 2021-09-19)
PROC: 4A023N8 Measurement of Cardiac Sampling and Pressure, Bilateral, Percutaneous Approach (ICD-10-PCS; 2021-09-28)
PROC: B2111ZZ Fluoroscopy of Multiple Coronary Arteries using Low Osmolar Contrast (ICD-10-PCS; 2021-09-28)
PROC: B2151ZZ Fluoroscopy of Left Heart using Low Osmolar Contrast (ICD-10-PCS; 2021-09-28)
PROC: B4181ZZ Fluoroscopy of Bilateral Renal Arteries using Low Osmolar Contrast (ICD-10-PCS; 2021-09-28)
DX: A41.9 Sepsis, unspecified organism (principal); J96.01 Acute respiratory failure with hypoxia; G93.41 Metabolic encephalopathy; I50.43 Acute on chronic combined systolic (congestive) and diastolic (congestive) heart failure; J69.0 Pneumonitis due to inhalation of food and vomit; J44.0 Chronic obstructive pulmonary disease with (acute) lower respiratory infection; E87.2 Acidosis; J44.1 Chronic obstructive pulmonary disease with (acute) exacerbation; E87.1 Hypo-osmolality and hyponatremia; I42.8 Other cardiomyopathies; F17.210 Nicotine dependence, cigarettes, uncomplicated; R77.8 Other specified abnormalities of plasma proteins; R73.9 Hyperglycemia, unspecified; I35.2 Nonrheumatic aortic (valve) stenosis with insufficiency; I16.0 Hypertensive urgency; I11.0 Hypertensive heart disease with heart failure; E87.6 Hypokalemia; Z20.822 Contact with and (suspected) exposure to COVID-19; E78.00 Pure hypercholesterolemia, unspecified; Z91.013 Allergy to seafood; Z78.1 Physical restraint status
CPT/HCPCS: 36252; 36415; 36416; 36600; 71045; 74230; 80048; 80053; 80061; 81001; 82010; 82553; 82805; 83036; 83605; 83735; 83880; 84145; 84484; 85025; 85347; 87040; 93005; 93306; 93460; 93567; 93798; 94002; 94003; 94640; 94644; 94760; 96365; 96366; 99152; 99153; J0360; J0456; J0696; J1200; J1644; J1650; J1720; J1815; J1940; J2001; J2060; J2250; J2405; J2704; J2720; J2920; J3010; J3475; J3480; J3490; J7050; J7611; J7620; Q9967; S0028; U0002; U0003; U0005